=== PATIENT | female | born 1950 | race Caucasian/White ===

== ENCOUNTER 2019-09-24 07:26 | Outpatient (CLI) | payer MEDICARE, BC, SELFPAY ==
--- NOTE | ~2019-09-24 | MM_ITS ---
EXAMINATION: MM screening [facility] BI w abhi HISTORY: Screening mammogram TECHNIQUE: Craniocaudal and mediolateral oblique 3-D tomosynthesis images were obtained and synthetic 2-D images were generated. CAD analysis was submitted and interpreted. COMPARISON: Comparison to multiple prior studies sequentially, with oldest reviewed study dated 04/07. BREAST PARENCHYMAL COMPOSITION: There are scattered areas of fibroglandular density. FINDINGS: There is no evidence of suspicious mass, calcification, or architectural distortion to sugg est malignancy in either breast. There has been no suspicious interval change. IMPRESSION: 1. No mammographic evidence of malignancy. 2. Recommend routine screening mammography in one year. BI-RADS Category 1: Negative Reviewed, dictated and finalized at location A.
== END 2019-09-24 07:27 | disposition home or self-care (01) ==
LOC: ANHIMG 07:30
PROVIDERS: PCP Family Medicine; Visit Provider Nurse Practitioner Obstetrics & Gynecology
DX: Z12.31 Encounter for screening mammogram for malignant neoplasm of breast (principal)
CPT/HCPCS: 77063; 77067

== ENCOUNTER → 2020-09-01 10:00 | Outpatient (CLI) | payer MEDICARE, BC, SELFPAY ==
--- NOTE | ~2020-09-01 | XR_ITS ---
XR ankle LT min 3V 09/01/2020 10:22 Indication: Left ankle pain. Procedure: 4 views left ankle Comparison: 02/12/2011 Findings: There is anatomic alignment. No fracture, subluxation or dislocation. No significant soft t issue abnormality. Ankle mortise intact. There are degenerative calcaneal enthesophytes. Impression: 1: No significant bone or joint abnormality. Reviewed, dictated and finalized at location B. Impression: 1: No significant bone or joint abnormality.
--- NOTE | ~2020-09-01 | XR_ITS ---
EXAMINATION: XR foot RT min 3V DATE: 09/01/2020 10:22 INDICATION: Right foot pain TECHNIQUE: Dorsoplantar, two oblique and lateral views of the right foot were obtained. COMPARISON: None. FINDINGS: Bone alignment is normal. No fracture. Mild osteoarthritis at the first metatarsophalangeal and a few tarsal metatarsal and interphalangeal joints. No erosions. Soft tissues are unremarkable. No ankle j oint effusion. IMPRESSION: 1. 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 Reviewed, dictated and finalized at location A.
== END ==
PROVIDERS: PCP Physician Assistant; Visit Provider Physician Assistant
DX: M25.473 Effusion, unspecified ankle (principal); M79.673 Pain in unspecified foot; M19.071 Primary osteoarthritis, right ankle and foot
CPT/HCPCS: 73610; 73630

== ENCOUNTER → 2020-10-13 09:12 | Outpatient (CLI) | payer MEDICARE, BC, SELFPAY ==
--- NOTE | ~2020-10-13 | US_ITS ---
EXAMINATION: US pelvic complete DATE: 10/13/2020 09:26 INDICATION: Left adnexal fullness, patient status post hysterectomy and right oophorectomy TECHNIQUE: Multiple transabdominal and endovaginal sonographic images of the pelvis were obtained. COMPARISON: None. FINDINGS: The uterus is surgically absent. The ovaries are not visualized however no adnexal abnormal ity is seen. There is no free fluid in the pelvis. IMPRESSION: 1. No sonographic correlate for the patient's symptoms. Reviewed, dictated and finalized at location B.
== END ==
PROVIDERS: PCP Family Medicine; Visit Provider Family Medicine
DX: N94.9 Unspecified condition associated with female genital organs and menstrual cycle (principal)
CPT/HCPCS: 76856

== ENCOUNTER 2020-12-29 14:10 | Outpatient (CLI) | payer MEDICARE, BC, SELFPAY ==
--- NOTE | ~2020-12-29 | DEXA_ITS ---
Bone Density Report Name: Yohana Sánchez Age: 70 Sex: Female Ethnicity: White Date of : 1950 Indication: postmenopausal; hysterectomy; Referring Provider: JOSE ARMANDO CASTANO Study: Bone densitometry was performed. Exam Date: December 29, 2020 Accession number: [id number] Bone Density: Region BMD T-score Z-score Classification AP Spine (L1-L4) 1.108 0.6 2.5 Normal Femoral Neck (Left) 0.808 -0.4 1.3 Normal Total Hip (Left) 0.942 0.0 1.4 Normal Total Hip Bilateral Avg 0.928 -0.1 1.3 Normal Femoral Neck (Right) 0.715 -1.2 0.5 Osteopenia Total Hip (Right) 0.913 -0.2 1.1 Normal World Health Organization criteria for BMD impression classify patients as: Normal (T-score at or above -1.0), Osteopenia (T-score between -1.0 and -2.5), or Osteoporosis (T-score at or below -2.5). 10-year Fracture Risk(1): Major Osteoporotic Fracture 8.6% Hip Fracture 0.8% Reported Risk Factors: [place] (), Neck BMD=0.715, BMI=31.7 (1) FRAX(R) Version 3.08. Fracture probability calculated for an untreated patient. Fracture probability may be lower if the patient has received treatment. Previous Exams: Region Exam Age BMD T-score BMD Change BMD Change Date g/cm2 vs Baseline vs Previous AP Spine(L1-L4) 12/29/2020 70 1.108 0.6 -0.007(-0.7%)# 0.072(6.9%)# 10/09/2018 67 1.036 -0.1 -0.079(-7.1%)# 0.003(0.3%) 04/07/2012 61 1.033 -0.1 -0.082(-7.3%)# -0.079(-7.1%)# 06/24/2008 57 1.112 0.6 -0.002(-0.2%) -0.002(-0.2%) 04/23/2005 54 1.115 0.6 Total Hip(Left) 12/29/2020 70 0.942 0.0 0.039(4.3%)# -0.044(-4.5%)# 10/09/2018 67 0.986 0.4 0.083(9.2%)# 0.079(8.7%)* 04/07/2012 61 0.908 -0.3 0.005(0.5%)# 0.007(0.7%)# 06/24/2008 57 0.901 -0.3 -0.002(-0.2%) -0.002(-0.2%) 04/23/2005 54 0.903 -0.3 Total Hip(Right) 12/29/2020 70 0.913 -0.2 0.039(4.4%)# -0.058(-6.0%)# 10/09/2018 67 0.971 0.2 0.097(11.1%)# 0.034(3.7%)* 04/07/2012 61 0.936 0.0 0.062(7.1%)# 0.059(6.8%)# 06/24/2008 57 0.877 -0.5 0.003(0.4%) 0.003(0.4%) 04/23/2005 54 0.874 -0.6 *Denotes significance at 95% confidence level, LSC for AP Spine = 0.022 g/cm2, LSC for Total Hip = 0.027 g/cm2 Clinical Information Provided by Patient: Has used the following medications: HRT (i.e. estrogen/hormone therapy), Vitamin D, Calcium Has the following medical conditions: Hysterectomy Patient maximum height was 64 Menopause Age: 38 No regular weight beari
--- NOTE | ~2020-12-29 | MM_ITS ---
EXAMINATION: MM screening [facility] BI w abhi HISTORY: Screening mammogram TECHNIQUE: Craniocaudal and mediolateral oblique 3-D tomosynthesis images were obtained and synthetic 2-D images were generated. CAD analysis was submitted and interpreted. COMPARISON: 09/24/2019, 09/18/2018, 09/08/2017 BREAST PARENCHYMAL COMPOSITION: There are scattered areas of fibroglandular density. FINDINGS: There is no evidence of suspicious mass, calcification, or architectural distortion to sugg est malignancy in either breast. There has been no suspicious interval change. IMPRESSION: 1. No mammographic evidence of malignancy. 2. Recommend routine screening mammography in one year. BI-RADS Category 1: Negative Reviewed, dictated and finalized at location A.
== END 2020-12-29 14:11 | disposition home or self-care (01) ==
LOC: ANHIMG 14:11
PROVIDERS: PCP Family Medicine; Visit Provider Family Medicine
DX: Z12.31 Encounter for screening mammogram for malignant neoplasm of breast (principal); Z78.0 Asymptomatic menopausal state; M85.851 Other specified disorders of bone density and structure, right thigh
CPT/HCPCS: 77063; 77067; 77080

== ENCOUNTER 2021-10-23 10:19 | Outpatient (CLI) | payer MEDICARE, BC, SELFPAY ==
--- NOTE | ~2021-10-23 | MR_ITS ---
EXAMINATION: MR lower leg LT wo/w con DATE: 10/23/2021 11:55 INDICATION: Enlarging leg mass TECHNIQUE: Magnetic resonance imaging (MRI) of the distal left lower leg was performed without and wi th 16 mL Multihance intravenous contrast. A marker was placed over the mass. Sequences included axia l, sagittal and coronal T1-weighted FSE and fluid sensitive FSE STIR, coronal and axial T2-weighted F S FSE, axial T1-weighted FS FSE and post contrast axial, sagittal and coronal T1-weighted FS FSE. COMPARISON: None. FINDINGS: There is focal increased thickness of the subcutaneous fat underlying the marker indicating the mass of concern. No discrete encapsulated lipoma. No other abnormal masses no abnormally enhancing lesions identified. The underlying musculature and visualized portion of the tendons at the distal calf and ankle are normal.. Joint space at the left ankle and visualized hindfoot appear normal. No joint effu sions. IMPRESSION: 1. The enlarging mass of concern appears to correspond to focal subcutaneous lipomatosis at the poste rior medial aspect of the left ankle/distal calf without a discernible capsule to suggest lipoma. Reviewed, dictated and finalized at location A. IMPRESSION: 1. The enlarging mass of concern appears to correspond to focal subcutaneous li pomatosis at the posterior medial aspect of the left ankle/distal calf without a discernible capsule to suggest lipoma.
== END 2021-10-23 10:20 | disposition home or self-care (01) ==
PROVIDERS: PCP Family Medicine; Visit Provider Family Medicine
DX: R22.42 Localized swelling, mass and lump, left lower limb (principal)
CPT/HCPCS: 73720; A9577

== ENCOUNTER 2022-02-20 13:20 | Emergency (ER) | payer MEDICARE, BC, SELFPAY ==
[2022-02-20 15:15] VITALS: BP 145/96; PULSE 99; RESP 20; TEMP 36.9; O2SAT 99
--- NOTE | 2022-02-20 16:57 | ED.URI ---
HPI - URI/Sore Throat General Chief Complaint: Upper Respiratory Infection Stated Complaint: congestion,cough Time Seen by Provider: 02/20/22 16:49 Source: patient Mode of arrival: ambulatory Limitations: no limitations History of Present Illness HPI Narrative: patient presents today with a 2 day history of congestion, cough, chest congestion, and decreased appetite. She also reports a fever intermittently up to 99. Denies shortness of breath. No history of asthma or COPD. She has been taking cold and flu medication without relief. sick with similar symptoms. Related Data Home Medications Medication Instructions Recorded Confirmed calcium carbonate 500 mg calcium 500 mg PO DAILY 05/07/20 10/07/21 (1,250 mg) tablet (Calcium 500) cholecalciferol (vitamin D3) 50 50 mcg PO DAILY 05/07/20 10/07/21 mcg (2,000 unit) capsule lutein 25 mg-zeaxanthin 5 mg cap PO 05/07/20 10/07/21 capsule turmeric root extract 500 mg 500 mg PO DAILY 05/07/20 10/07/21 capsule Allergies Allergy/AdvReac Type Severity Reaction Status Date / Time acetaminophen [From Wygesic] Allergy Mild Hives Verified 10/07/21 09:01 propoxyphene [From Wygesic] Allergy Mild Hives Verified 10/07/21 09:01 Review of Systems Review of Systems: CONSTITUTIONAL: Denies body aches, fever, chills, or sweats. EYES: Denies visual changes, redness, or discharge. ENT: Denies rhinorrhea, sore throat, or otalgia.+ congestion CARDIOVASCULAR: Denies chest pain, palpitations, or edema. RESPIRATORY: Denies dyspnea.+ cough, chest congestion GASTROINTESTINAL: Denies abdominal pain, nausea, vomiting, or diarrhea.+ decreased appetite GENITOURINARY: Denies dysuria or hematuria. SKIN: Denies rash, itching, or wounds. MUSCULOSKELETAL: Denies back pain, joint pain, or myalgia. NEUROLOGIC: Denies headache, numbness, tingling, or weakness. PSYCH: Denies depression or anxiety. [facility] Past Medical History Medical History Chronic joint pain shoulder Hypothyroidism Normal colonoscopy (~2018) Surgical History Surgical History H/O section H/O: hysterectomy History of appendectomy Family History Family History Father Alzheimer disease Social History Social History Smoking status: Never smoker Second hand tobacco smoke exposure: No Alcohol intake: never Substance use: never Substance use type: does not use Gender identity (if verbalized by the patient): Female Comments At time of signature, I have reviewed and agree with nursing past medical, surgical, social and family history unless otherwise noted. Please see nursing chart for further information. There is no relevant family history pertinent to the presenting complaint Exam Narrative: GENERAL: mildly ill-appearing, well-nourished, and in no acute distress. HEAD: Normocephalic, atraumatic. EYES: EOMI. No redness or drainage. Conjunctivae normal. ENT: Mucous membranes pink and moist. Nares clear. No rhinorrhea. TMs normal bilaterally. Throat normal. Uvula midline. NECK: Normal AROM. Supple. No lymphadenopathy. CHEST: No respiratory distress. Clear to auscultation. frequent harsh cough HEART: Regular rate and rhythm. No murmur appreciated. Normal peripheral pulses. EXTREMITIES: Normal range of motion. No edema. SKIN: Warm, dry, no rash. Capillary refill normal. Normal skin turgor. NEURO: No focal deficits. Alert and oriented x3. Gait steady. PSYCH: Normal affect. No signs of depression or anxiety. Course Course Level of Care: Express Care Visit Vital Signs Vital signs: Vital Signs Temperature 98.5 F 02/20/22 15:15 Pulse Rate 99 02/20/22 15:15 Respiratory Rate 20 02/20/22 15:15 Blood Pressure 145/96 H
== END 2022-02-20 17:04 | disposition home or self-care (01) ==
PROVIDERS: Emergency Provider Nurse Practitioner; PCP Family Medicine
DX: J06.9 Acute upper respiratory infection, unspecified (principal); E03.9 Hypothyroidism, unspecified
CPT/HCPCS: 99213; G0463

== ENCOUNTER 2022-05-06 07:29 | Outpatient (CLI) | payer MEDICARE, BC, SELFPAY ==
--- NOTE | ~2022-05-06 | MM_ITS ---
EXAMINATION: MM screening [facility] BI w abhi HISTORY: Screening mammogram TECHNIQUE: Craniocaudal and mediolateral oblique 3-D tomosynthesis images were obtained and synthetic 2-D images were generated. CAD analysis was submitted and interpreted. COMPARISON: 12/2020, 09/24/2019, 09/14/2018 bilateral screening mammogram examinations BREAST PARENCHYMAL COMPOSITION: The breasts are almost entirely fatty. FINDINGS: There is no evidence of suspicious mass, calcification, or architectural distortion to sugg est malignancy in either breast. There has been no suspicious interval change. IMPRESSION: 1. No mammographic evidence of malignancy. 2. Recommend routine screening mammography in one year. BI-RADS Category 1: Negative Reviewed, dictated and finalized at location A. [facility] [employer]
== END 2022-05-06 07:30 | disposition home or self-care (01) ==
LOC: ANHIMG 07:31
PROVIDERS: PCP Family Medicine; Visit Provider Family Medicine
DX: Z12.31 Encounter for screening mammogram for malignant neoplasm of breast (principal)
CPT/HCPCS: 77063; 77067

== ENCOUNTER 2023-02-08 12:41 | Emergency (ER) | payer MEDICARE, BC, SELFPAY ==
[2023-02-08 12:51] VITALS: BP 142/86; PULSE 92; RESP 18; TEMP 36.6; O2SAT 98
--- NOTE | 2023-02-08 12:53 | ED.URI ---
HPI - URI/Sore Throat General Chief Complaint: Upper Respiratory Infection Stated Complaint: Fatigue,Cough,Congestion Time Seen by Provider: 02/08/23 12:59 Source: patient and RN notes reviewed Mode of arrival: ambulatory Limitations: no limitations History of Present Illness HPI Narrative: 72-year-old female presented for complaint of headache, body aches, sinus pressure/congestion, cough, fever/chills. Onset yesterday. Endorses 1 episode of vomiting today. Temp up to 102 at home. Denies sob, wheezing, or lethargy. Denies sick contacts. She took NyQuil for symptoms. MD elicited complaint: cough Related Data Home Medications Medication Instructions Recorded Confirmed calcium carbonate 500 mg calcium 500 mg PO DAILY 05/07/20 10/07/21 (1,250 mg) tablet (Calcium 500) cholecalciferol (vitamin D3) 50 50 mcg PO DAILY 05/07/20 10/07/21 mcg (2,000 unit) capsule lutein 25 mg-zeaxanthin 5 mg cap PO 05/07/20 10/07/21 capsule turmeric root extract 500 mg 500 mg PO DAILY 05/07/20 10/07/21 capsule ascorbic acid (vitamin C) 500 mg 250 mg PO DAILY 10/12/22 tablet coenzyme Q10 200 mg/gram oral mg PO DAILY 10/12/22 powder (H2Q CoQ10) omega-3 250 mx-zyb-axq-lutein 2.5 cap PO 10/12/22 mg-zeaxanthin 0.5 mg capsule Allergies Allergy/AdvReac Type Severity Reaction Status Date / Time acetaminophen [From Wygesic] Allergy Mild Hives Verified 10/12/22 09:08 propoxyphene [From Wygesic] Allergy Mild Hives Verified 10/12/22 09:08 Review of Systems Review of Systems: CONSTITUTIONAL: Endorses malaise, chills, sweats, fever EYES: Denies visual changes, redness, or discharge ENT: Reports rhinorrhea, congestion, sinus pain, denies otalgia, sore throat CARDIOVASCULAR: Denies chest pain, palpitations, edema RESPIRATORY: Reports cough, post nasal drainage. Denies dyspnea GASTROINTESTINAL: Reports nausea, vomiting Denies abdominal pain, diarrhea SKIN: Denies rash or itching MUSCULOSKELETAL: Endorses myalgia NEUROLOGIC: Endorses headache PMFSH Past Medical History Medical History Chronic joint pain shoulder Hyperlipidemia Hypothyroidism Normal colonoscopy (~2018) Vitamin D deficiency Surgical History Surgical History H/O section H/O: hysterectomy History of appendectomy Family History Family History Father Alzheimer disease Social History Social History Smoking status: Never smoker Second hand tobacco smoke exposure: No Alcohol intake: never Substance use: never Substance use type: does not use Lack of Transportation: No Lack of Food: Never True Current Housing: I Have Housing Concerned About Future Housing: No Difficulty Paying Gas/Electric Bills: No Difficulty Paying for Meds: No Currently Unemployed: No Education: High School Diploma/GED Difficulty w/ Childcare or Family Care: No Living arrangements: with family Occupation/Education: retired Gender identity (if verbalized by the patient): Female Sexual Orientation (if Verbalized by the Patient): Straight or Heterosexual Spiritual care concerns: No Agree to blood products: Yes Exam Narrative: GENERAL: mildly Ill-appearing, nontoxic no acute distress. HEAD: Normocephalic EYES: PERRLA, conjunctivae clear ENT: Mucous membranes moist. TMs pearly sherman with dull light reflex bilaterally; no tragal tenderness. Oropharynx mildly erythematous without lesions or exudate, no drooling, no hoarseness, no trismus, uvula midline. No tripod positioning, muffled voice, soft palate or pharyngeal wall bulging NECK: Supple. No lymphadenopathy CHEST: Clear to auscultation, breath sounds equal. No wheezing, rhonchi, rales, or stridor. No respiratory distress, speaks in full sentences. HEART: Regular r
== END 2023-02-08 13:10 | disposition home or self-care (01) ==
PROVIDERS: Emergency Provider Nurse Practitioner Family; PCP Family Medicine
DX: U07.1 COVID-19 (principal); E78.5 Hyperlipidemia, unspecified; E03.9 Hypothyroidism, unspecified; E55.9 Vitamin D deficiency, unspecified
CPT/HCPCS: 87426; 87804; 99213; C9803; G0463

== ENCOUNTER 2023-05-12 14:27 | Outpatient (CLI) | payer MEDICARE, BC, SELFPAY ==
[2023-05-12 14:57] LABS: Basophils Absolute Auto 0.1 K/mm3 (0.0-0.1); Basophils Percent Auto 1.2 % (0.2-1.2); Eosinophils Percent Auto 0.4 % (0-4.4); Hematocrit 40.1 % (37.0-47.0); Immature Granulocyte Absolute 0.06 K/mm3 (0.00-0.031); Immature Granulocyte Percent A 1.2 % (0-0.5); Immature Platelet Fraction Pct 16.7 % (0.9-11.2); Lymphocytes Absolute Auto 0.96 K/mm3 (0.9-3.2); Lymphocytes Percent Auto 19.2 % (18.3-44.2); Mean Corpuscular HGB Conc 32.4 g/dl (32-36); Mean Corpuscular Hemoglobin 31.3 pg (26-34); Mean Corpuscular Volume 96.4 fl (80-100); Monocytes Absolute Auto 0.9 K/mm3 (0.1-0.6); Monocytes Percent Auto 17.4 % (2.6-8.5); Neutrophils Percent Auto 60.6 % (45.5-73.1); Platelet Count Result 88 k/mm3 (150-375); Red Blood Count 4.16 M/mm3 (4.2-5.4); Red Cell Distribution Width 14.3 % (11.5-14.5)
[2023-05-12 17:15] LABS: Alanine Aminotransferase 18 U/L (6-35); Albumin Level 4.3 g/dL (3.5-5.1); Alkaline Phosphatase 79 U/L (38-126); Anion Gap 6 mmol/L (8-16); Aspartate Amino Transferase 27 U/L (14-36); Bilirubin,Total 0.4 mg/dL (0.2-1.3); Blood Urea Nitrogen 21 mg/dL (7-17); Calcium 9.3 mg/dL (8.4-10.2); Carbon Dioxide 30 mmol/L (22-30); Chloride 109 mmol/L (98-107); Estimated Glomerular Filt Rate 55; Glucose 103 mg/dL (65-110); Potassium 3.7 mmol/L (3.4-5.0); Sodium 145 mmol/L (137-145)
[2023-05-12 18:29] LABS: Folic Acid 8.7 ng/mL (2.76->20)
[2023-05-12 20:00] LABS: Iron 100 ug/dL (37-170); Percent Iron Saturation 28 % (20-50)
[2023-05-15 02:51] LABS: Methylmalonic Acid 282 nmol/L (87-318)
[2023-05-17 11:21] LABS: Soluble Transferrin Receptor 2.12 mg/L (0.76-1.76)
[2023-05-18 18:58] LABS: Platelet Antibody, Direct NEGATIVE (NEGATIVE)
== END 2023-05-12 14:28 | disposition home or self-care (01) ==
LOC: ANHLAB 14:30
PROVIDERS: Nurse Practitioner Family; PCP Family Medicine; Visit Provider Internal Medicine Hematology & Oncology
DX: D72.819 Decreased white blood cell count, unspecified (principal); D50.8 Other iron deficiency anemias
CPT/HCPCS: 36415; 80053; 82607; 82728; 82746; 83540; 83550; 83921; 84238; 85025; 85055; 86023

== ENCOUNTER 2023-05-26 09:41 | Outpatient (CLI) | payer MEDICARE, BC, SELFPAY ==
--- NOTE | ~2023-05-26 | US_ITS ---
Abdominal Sonogram: Real-time sonographic imaging of the abdomen was performed. Clinical History: Leukopenia Findings: The liver appears mildly echogenic, with no evidence of mass lesion or bile duct dilatatio n. Main portal vein demonstrates normal direction of flow. The spleen is normal in size without evide nce of focal lesion. The gallbladder is well distended, and appears normal with no evidence of galls tone or wall thickening. The common bile duct measures 4 mm. The visualized pancreas, aorta, and IVC are unremarkable. The right kidney measures 10.7 cm in length and the left kidney measures 11.0 cm. There is no hydronephrosis or renal calculus. Impression: Mild diffuse fatty infiltration of liver. Reviewed, dictated and finalized at location . FILLER Impression: Mild diffuse fatty infiltration of liver.
== END 2023-05-26 09:42 | disposition home or self-care (01) ==
PROVIDERS: PCP Family Medicine; Visit Provider Nurse Practitioner Family
DX: K76.0 Fatty (change of) liver, not elsewhere classified (principal); D72.819 Decreased white blood cell count, unspecified
CPT/HCPCS: 76700

== ENCOUNTER 2023-06-08 12:52 | Outpatient (CLI) | payer MEDICARE, BC, SELFPAY ==
--- NOTE | ~2023-06-08 | DEXA_ITS ---
Bone Density Report Name: LEIA BUCIO Age: 72 Sex: Female Ethnicity: White Date of : 1950 Indication: postmenopausal; screening for osteoporosis; hysterectomy; Referring Provider: JANIS BURRELL Study: Bone densitometry was performed. Exam Date: June 08, 2023 Accession number: [id number] Bone Density: Region BMD T-score Z-score Classification AP Spine(L1-L4) 1.089 0.4 2.5 Normal Femoral Neck (Left) 0.760 -0.8 1.0 Normal Total Hip (Left) 0.933 -0.1 1.5 Normal Femoral Neck (Right) 0.794 -0.5 1.3 Normal Total Hip (Right) 0.954 0.1 1.6 Normal Total Hip Mean 0.944 0.0 1.6 Normal World Health Organization criteria for BMD impression classify patients as: Normal (T-score at or above -1.0), Osteopenia (T-score between -1.0 and -2.5), or Osteoporosis (T-score at or below -2.5). 10-year Fracture Risk: FRAX not reported because: All T-scores for Spine Total, Hip Total, Femoral Neck at or above -1.0 Previous Exams: Region Exam Age BMD T-score BMD Change BMD Change Date g/cm2 vs Baseline vs Previous AP Spine (L1-L4) 06/08/2023 72 1.089 0.4 0.053 (5.1%)# -0.019 (-1.7%) 12/29/2020 70 1.108 0.6 0.072 (6.9%)# 0.072 (6.9%)# 10/09/2018 67 1.036 -0.1 Total Hip(Left) 06/08/2023 72 0.933 -0.1 -0.053 (-5.4%) -0.009 (-1.0%) 12/29/2020 70 0.942 0.0 -0.044 (-4.5%) -0.044 (-4.5%) 10/09/2018 67 0.986 0.4 Total Hip(Right) 06/08/2023 72 0.954 0.1 -0.016 (-1.7%) 0.042 (4.6%)* 12/29/2020 70 0.913 -0.2 -0.058 (-6.0%) -0.058 (-6.0%) 10/09/2018 67 0.971 0.2 *Denotes significance at 95% confidence level, LSC for AP Spine = 0.022 g/cm2, LSC for Total Hip = 0.027 g/cm2 # Denotes dissimilar scan types or analysis methods Clinical Information Provided by Patient: Has used the following medications: Vitamin D, Calcium, SYNTHROID Has the following medical conditions: Hysterectomy Patient maximum height was 64 Menopause Age: 38 Drinks caffeinated beverages Onset of menses at age 17 Number of children 3 Impression: The patient has normal bone mass. No significant bone loss was observed. Discussion: BONE DENSITY IS ABOVE THE MINIMUM DESIRABLE LEVEL AT ALL SKELETAL SITES TESTED. This patient?s bone mineral density is above the minimum desirable level (T-score -1.0 or better) at all sites measured. The patient should follow a healthful lifestyle (good nutrition with adequate calcium and vitami
== END 2023-06-08 12:53 | disposition home or self-care (01) ==
PROVIDERS: PCP Family Medicine; Visit Provider Nurse Practitioner Family
DX: M85.80 Other specified disorders of bone density and structure, unspecified site (principal); Z78.0 Asymptomatic menopausal state; Z13.820 Encounter for screening for osteoporosis
CPT/HCPCS: 77080

== ENCOUNTER 2023-07-03 10:45 | Emergency (ER) | payer MEDICARE, BC, SELFPAY ==
--- NOTE | ~2023-07-03 | XR_ITS ---
XR chest 2V DATE: 07/03/2023 13:14 INDICATION: Cough, shortness of breath TECHNIQUE: 2 views COMPARISON: No prior radiograph available from PACS system at this time FINDINGS: Normal heart size. No hilar or mediastinal enlargement. No pulmonary infiltrate or consolid ation, pleural effusion or pulmonary vascular congestion or pneumothorax. Old pulmonary granulomatous disease. Degenerative spurring of the thoracic spine. IMPRESSION: No active cardiopulmonary disease Reviewed, dictated and finalized at location A.
== END 2023-07-03 11:40 | disposition home or self-care (01) ==
LOC: EXPTROY 12:18
PROVIDERS: Emergency Provider Nurse Practitioner Family; PCP Family Medicine
DX: J40 Bronchitis, not specified as acute or chronic (principal); E78.5 Hyperlipidemia, unspecified
CPT/HCPCS: 71046; 99213; G0463

== ENCOUNTER 2023-09-12 08:13 | Outpatient (CLI) | payer MEDICARE, BC, SELFPAY ==
--- NOTE | ~2023-09-12 | MM_ITS ---
EXAMINATION: MM screening [facility] BI w abhi HISTORY: Screening TECHNIQUE: Craniocaudal and mediolateral oblique 3-D tomosynthesis images were obtained and synthetic 2-D images were generated. CAD analysis was submitted and interpreted. COMPARISON: Comparison to multiple prior studies sequentially, with oldest reviewed study dated 10/2016. BREAST PARENCHYMAL COMPOSITION: Not Dense: Breast are almost entirely fatty. FINDINGS: There is no evidence of suspicious mass, calcification, or architectural distortion to sugg est malignancy in either breast. There has been no suspicious interval change. IMPRESSION: 1. No mammographic evidence of malignancy. 2. Recommend routine screening mammography in one year. BI-RADS Category 1: Negative Reviewed, dictated and finalized at location B.
== END 2023-09-12 08:14 | disposition home or self-care (01) ==
LOC: ANHIMG 08:15
PROVIDERS: PCP Family Medicine; Visit Provider Family Medicine
DX: Z12.31 Encounter for screening mammogram for malignant neoplasm of breast (principal)
CPT/HCPCS: 77063; 77067

== ENCOUNTER 2023-09-20 08:15 | Outpatient (CLI) | payer MEDICARE, BC, SELFPAY ==
[2023-09-20 09:01] LABS: Basophils Absolute Auto 0.1 K/mm3 (0.0-0.1); Basophils Percent Auto 1.4 % (0.2-1.2); Eosinophils Percent Auto 0.5 % (0-4.4); Hemoglobin 14.3 g/dL (12.0-15.0); Immature Granulocyte Absolute 0.03 K/mm3 (0.00-0.031); Immature Granulocyte Percent A 0.7 % (0-0.5); Immature Platelet Fraction Pct 17.6 % (0.9-11.2); Lymphocytes Absolute Auto 0.79 K/mm3 (0.9-3.2); Lymphocytes Percent Auto 18.2 % (18.3-44.2); Mean Corpuscular HGB Conc 32.5 g/dl (32-36); Mean Corpuscular Hemoglobin 31.4 pg (26-34); Mean Corpuscular Volume 96.7 fl (80-100); Mean Platelet Volume 11.7 fl (7.4-10.4); Monocytes Absolute Auto 0.6 K/mm3 (0.1-0.6); Monocytes Percent Auto 14.5 % (2.6-8.5); Neutrophils Absolute Auto 2.8 K/mm3 (1.3-6.7); Neutrophils Percent Auto 64.7 % (45.5-73.1); Platelet Count Result 84 k/mm3 (150-375); Red Blood Count 4.55 M/mm3 (4.2-5.4); Red Cell Distribution Width 14.9 % (11.5-14.5); White Blood Count 4.3 K/mm3 (4.5-10.0)
[2023-09-20 10:00] LABS: HIV 1/2 Ab P24 Ag Result Negative (Negative)
[2023-09-20 11:53] LABS: Iron 149 ug/dL (37-170)
[2023-09-20 12:03] LABS: Percent Iron Saturation 48 % (20-50)
[2023-09-20 12:57] LABS: Hepatitis B Surface Antigen Negative (Negative)
[2023-09-20 13:02] LABS: HAV RESULT Negative (Negative); Hepatitis B Core IgM Result Negative (Negative)
[2023-09-20 13:14] LABS: Hepatitis C Virus Antibody Negative (Negative)
[2023-09-24 14:38] LABS: Soluble Transferrin Receptor 2.17 mg/L (0.76-1.76)
== END 2023-09-20 08:16 | disposition home or self-care (01) ==
LOC: ANHLAB 08:23
PROVIDERS: Nurse Practitioner Family; PCP Family Medicine; Visit Provider Internal Medicine Hematology & Oncology
DX: D50.8 Other iron deficiency anemias (principal); D69.6 Thrombocytopenia, unspecified; Z11.4 Encounter for screening for human immunodeficiency virus [HIV]
CPT/HCPCS: 36415; 80074; 83540; 83550; 84238; 85025; 85055; 86703; G0432

== ENCOUNTER 2023-10-12 09:02 | Outpatient (CLI) | payer MEDICARE, BC, SELFPAY ==
--- NOTE | ~2023-10-12 | XR_ITS ---
Right Knee Technique: AP, lateral, and sunrise views were obtained. Clinical History: Pain Findings: No acute fracture or dislocation is seen. Possible chronic healed fracture of the proximal fibular shaft. Osseous alignment is anatomic. Minimal degenerative spurring at the intercondylar notc h and patella noted. Soft tissues are unremarkable. No joint effusion is seen. Impression: Minimal degenerative spurring, as above. Possible chronic healed fracture deformity at the proximal fibular shaft. Reviewed, dictated and finalized at location M. Impression: Minimal degenerative spurring, as above. Possible chronic healed fracture deformity at the proximal fibular shaft.
== END 2023-10-12 09:03 ==
LOC: MICIMG 09:04
PROVIDERS: PCP Family Medicine; Visit Provider Family Medicine
DX: M25.761 Osteophyte, right knee (principal)
CPT/HCPCS: 73564

== ENCOUNTER 2023-11-18 07:04 | Outpatient (CLI) | payer MEDICARE, BC, SELFPAY ==
--- NOTE | ~2023-11-18 | MR_ITS ---
EXAMINATION: MR knee RT wo con DATE: 11/18/2023 07:37 INDICATION: Right knee pain TECHNIQUE: Magnetic resonance imaging (MRI) of the right knee was performed without intravenous contr ast. Sequences included coronal PD-weighted FSE, coronal PD-weighted FS FSE, sagittal T2-weighted FS E, sagittal PD-weighted FS FSE and axial PD weighted fat saturated FSE. COMPARISON: Right knee radiographs dated 10/12/2023 FINDINGS: Medial compartment: Medial meniscus is normal. Articular cartilage is normal. Lateral compartment: Complex tear of the body and anterior horn of the lateral meniscus with meniscal defect measuring 6 m m AP is absence of the inner two thirds of the meniscal body. Partial thickness cartilage loss involv ing. 50% coverage thickness with mild surface regularity at the central to posterior weightbearing la teral femoral condyle and along significant portion of the lateral tibial plateau. Patellofemoral compartment: Mild partial thickness cartilage loss and scattered shallow chondral fissuring along the medial and l ateral patellar facets and intervening apical ridge. Deeper chondral ulceration with negligible corti sally irregularity and subarticular edema like signal change at the medial and lateral trochlea. Ligaments and tendons: Anterior and posterior cruciate ligaments are normal. The medial collateral ligament and fibular campos ateral ligament complex are normal. The extensor mechanism is normal. The visualized medial and later al hamstring tendons as well as the iliotibial band are normal. Fluid: Small knee joint effusion at the suprapatellar pouch. No loose osteochondral bodies identified. Small Echols's cyst. Osseous/other: Mild cystic change at the posterior aspect of the intercondylar eminence underlying the tibial footpl ates of the posterior cruciate ligament and posterior horn of the medial meniscus with mild surroundi ng marrow edema. Marrow signal is otherwise normal. No fracture or pathologic marrow replacing proces s. IMPRESSION: 1. Complex lateral meniscal tear. 2. Mild to moderate lateral compartment and mild total femoral compartment osteoarthritis with region s of moderate to high-grade chondromalacia. 3. Small right knee joint effusion with small Echols's cyst. Reviewed, dictated and finalized at location A. IMPRESSION: 1. Complex lateral meniscal tear. 2. Mild to moderate lateral compartment and mild total femoral compartment oste oarthritis with regions of moderate to high-grade chondromalacia. 3. Small right knee joint effusion with small Echols's cyst.
== END 2023-11-18 07:05 ==
LOC: MICIMG 07:06
PROVIDERS: PCP Family Medicine; Visit Provider Family Medicine
DX: S83.271D Complex tear of lateral meniscus, current injury, right knee, subsequent encounter (principal); X58.XXXD Exposure to other specified factors, subsequent encounter; M25.461 Effusion, right knee; M71.21 Synovial cyst of popliteal space [Baker], right knee
CPT/HCPCS: 73721

== ENCOUNTER 2023-12-27 07:10 | Outpatient (CLI) | payer MEDICARE, BC, SELFPAY ==
--- NOTE | 2023-12-27 07:56 | ECG_ITS ---
Test Date: 2023-12-27 08:03:22 Measurements Intervals [place] Rate: 69 P: 28 VA: 173 QRS: 39 QRSD: 82 T: 42 QT: 408 QTc: 437 Interpretive Statements SINUS RHYTHM LOW QRS VOLTAGE IN PRECORDIAL LEADS [QRS DEFLECTION < 1.0 mV IN CHEST LEADS] No previous ECG available for comparison Electronically Signed On 12-27-2023 10:11:54 CDT by Lance Najera M.D.
[2023-12-27 08:09] LABS: Basophils Absolute Auto 0.1 K/mm3 (0.0-0.1); Basophils Percent Auto 1.8 % (0.2-1.2); Eosinophils Percent Auto 0.7 % (0-4.4); Hematocrit 41.4 % (37.0-47.0); Hemoglobin 13.8 g/dL (12.0-15.0); Immature Granulocyte Absolute 0.03 K/mm3 (0.00-0.031); Immature Granulocyte Percent A 0.7 % (0-0.5); Immature Platelet Fraction Pct 18.6 % (0.9-11.2); Lymphocytes Absolute Auto 0.74 K/mm3 (0.9-3.2); Lymphocytes Percent Auto 16.9 % (18.3-44.2); Mean Corpuscular HGB Conc 33.3 g/dl (32-36); Mean Corpuscular Hemoglobin 32.5 pg (26-34); Mean Corpuscular Volume 97.6 fl (80-100); Mean Platelet Volume 12.8 fl (7.4-10.4); Monocytes Absolute Auto 0.8 K/mm3 (0.1-0.6); Monocytes Percent Auto 18.9 % (2.6-8.5); Neutrophils Absolute Auto 2.7 K/mm3 (1.3-6.7); Platelet Count Result 82 k/mm3 (150-375); Red Blood Count 4.24 M/mm3 (4.2-5.4); Red Cell Distribution Width 14.5 % (11.5-14.5); White Blood Count 4.4 K/mm3 (4.5-10.0)
[2023-12-27 08:18] LABS: Alanine Aminotransferase 20 U/L (6-35); Albumin Level 4.5 g/dL (3.5-5.1); Alkaline Phosphatase 85 U/L (38-126); Anion Gap 8 mmol/L (4-12); Aspartate Amino Transferase 28 U/L (14-36); Bilirubin,Total 0.5 mg/dL (0.2-1.3); Blood Urea Nitrogen 19 mg/dL (7-17); Calcium 9.2 mg/dL (8.4-10.2); Carbon Dioxide 27 mmol/L (22-30); Chloride 106 mmol/L (98-107); Estimated Glomerular Filt Rate > 60; Glucose 113 mg/dL (65-110); Potassium 4.2 mmol/L (3.4-5.0); Sodium 141 mmol/L (137-145)
[2023-12-27 08:19] LABS: Iron 80 ug/dL (37-170)
[2023-12-27 08:29] LABS: Percent Iron Saturation 28 % (20-50)
[2023-12-27 09:15] LABS: Folic Acid 8.1 ng/mL (2.76->20)
== END 2023-12-27 07:11 | disposition home or self-care (01) ==
PROVIDERS: Nurse Practitioner Family; PCP Family Medicine; Referring Provider Internal Medicine Hematology & Oncology; Visit Provider Orthopaedic Surgery
DX: Z01.818 Encounter for other preprocedural examination (principal); D69.6 Thrombocytopenia, unspecified; D50.9 Iron deficiency anemia, unspecified; D72.819 Decreased white blood cell count, unspecified
CPT/HCPCS: 36415; 80053; 82607; 82728; 82746; 83540; 83550; 85025; 85055; 86038; 86039; 93005

== ENCOUNTER 2024-01-02 08:04 | Outpatient (CLI) | payer MEDICARE, BC, SELFPAY ==
[2024-01-02 08:40] LABS: Prothrombin Time 13.8 Seconds (11.1-14.7)
[2024-01-02 08:41] LABS: Partial Thromboplastin Time 28.4 Seconds (22.3-36.8)
== END 2024-01-02 08:05 | disposition home or self-care (01) ==
LOC: ANHSURGERY 08:08
PROVIDERS: Anesthesiology; PCP Family Medicine; Visit Provider Orthopaedic Surgery
DX: D69.6 Thrombocytopenia, unspecified (principal); Z01.818 Encounter for other preprocedural examination
CPT/HCPCS: 36415; 85610; 85730

== ENCOUNTER 2024-01-04 01:50 | Day surgery (SDC) | payer MEDICARE, BC, SELFPAY ==
--- NOTE | 2023-12-29 14:37 | PC.NURSE ---
Report to the Outpatient Waiting Room, entrance under the green pavilion located off [facility], at time __11:30am___ on date 01/04/24 . Planned Procedure Time: __1:30pm .? Time changes happen often and if your time is changed the preop area will call you the afternoon before. - You and your visitor will be asked to self-screen and do not enter if you have any COVID symptoms. Please call surgeon if you need to reschedule. - A mask is optional within the hospital at this time. Patients may have clear liquids (water, carbonated beverages, clear teas, apple juice) until 3 hours prior to surgery with a maximum of 20 ounces. - No food from midnight until time of surgery and no smoking (10:30am) Take only the following medications with a SIP of water on the morning of surgery: ____Levothyroxine and Celebrex DO NOT STOP ANY OF YOUR OTHER PRESCRIPTION MEDICATIONS PRIOR TO SURGERY EXCEPT THE FOLLOWING Medications to discontinue per physician Hold all vitamins, supplements, herbs and probiotics 3 days prior per Anesthesia Date to take last dose____12/31/23 Please no make-up, nail monegasque, hairspray, perfume, deodorant, or body powder the day of surgery.? No jewelry (including any body piercings) or valuables the day of surgery, leave them at home.? Please take a shower or bath the night before, or the morning of, surgery with an antibacterial soap.? Wear comfortable, loose fitting clothing.? - Jewelry must be removed prior to entering the operating room.? Rings and piercings that are not removed may be cut off. - The hospital will not accept responsibility for valuables.? - Please leave all valuables, including medications, at home the day of surgery. If you are going home after surgery, a licensed train driver must drive you home.? - NO public transportation without another adult if you receive anesthesia. - We recommend that an adult stay with you for 24 hours following discharge. - We also recommend that you do not drive, make important decision, drink alcoholic beverages, or take any drugs that were not prescribed by your health care provider for at least 24 hours after your discharge time. Follow any additional instructions given to you from your surgeon. Telephone instructions given to ___patient and asked if any additional questions and then verbalized understanding. Patient advised to call surgeon office or pre surgery nurse liaison [phone] if any additional questions.
[2023-12-29 14:42] VITALS: BMI 31.6
--- NOTE | 2024-01-03 17:46 | WPDANESEPPF ---
Anes - Initial Pre Proc Eval Procedure: Operation Date: 01/04/24 13:30 Proposed Procedures p Right Knee Arthroscopy - Luis Reed MD Date/Time: 01/03/24 17:46 Surgeon: Luis Reed MD Pre Op Diagnosis: right knee lateral meniscus tear Patient Data Age: 73 Gender: F Height: 1.6 m Weight: 81 kg Allergies Allergy/AdvReac Type Severity Reaction Status Date / Time propoxyphene [From [employer]] Allergy Mild Hives Verified 01/04/24 11:51 Home Medications Medication Instructions Recorded Confirmed Type calcium carbonate (Calcium 500) 500 mg PO DAILY 05/07/20 01/04/24 History cholecalciferol (vitamin D3) 50 50 mcg PO DAILY 05/07/20 01/04/24 History mcg (2,000 unit) capsule lutein 25 mg-zeaxanthin 5 mg 1 cap PO DAILY 05/07/20 01/04/24 History capsule turmeric root extract 500 mg 500 mg PO DAILY 05/07/20 01/04/24 History capsule ascorbic acid (vitamin C) 500 mg 250 mg PO DAILY 10/12/22 01/04/24 History tablet coenzyme Q10 200 mg/gram oral 200 mg PO DAILY 10/12/22 01/04/24 History powder (H2Q CoQ10) omega-3 250 yt-lxd-xvm-lutein 2.5 1 cap PO DAILY 10/12/22 01/04/24 History mg-zeaxanthin 0.5 mg capsule levothyroxine 25 mcg tablet 25 mcg PO DAILY #90 tabs 01/30/23 01/04/24 Rx simvastatin 5 mg tablet 5 mg PO DAILY #90 tabs 06/21/23 01/04/24 Rx estradiol 0.5 mg tablet 0.5 mg PO .twice a week #12 tabs 11/07/23 01/04/24 Rx celecoxib 200 mg capsule (Celebrex) 200 mg PO DAILY #30 caps 11/14/23 01/04/24 Rx hydrocodone 5 mg-acetaminophen 325 1 tablet PO Q12H PRN pain #20 tabs 01/04/24 Rx mg tablet Patient hx anesthesia problems: none Family hx anesthesia problems: none Results Review: All pre-operative results and documents have been reviewed as part of the pre-operative evaluation. [facility] Past Medical History Medical History Chronic joint pain shoulder Hyperlipidemia Hypothyroidism Normal colonoscopy (~2018) Vitamin D deficiency Surgical History Surgical History H/O section H/O: hysterectomy History of appendectomy Family History Family History Father Alzheimer disease Social History Social History Smoking status: Never smoker Second hand tobacco smoke exposure: No Alcohol intake: never Substance use: never Substance use type: does not use Lack of Transportation: No Lack of Food: Never True Current Housing: I Have Housing Concerned About Future Housing: No Difficulty Paying Gas/Electric Bills: No Difficulty Paying for Meds: No Currently Unemployed: No Education: High School Diploma/GED Difficulty w/ Childcare or Family Care: No Living arrangements: with family Additional living arrangements comments: Occupation/Education: retired Gender identity (if verbalized by the patient): Female Sexual Orientation (if Verbalized by the Patient): Straight or Heterosexual Spiritual care concerns: No Agree to blood products: Yes Anes - Eval Final PreProcedure Day of Procedure 01/03/24 17:46 Patient weight: overweight Results Review: All pre-operative results and documents have been reviewed as part of the pre-operative evaluation. Informed Consent: The patient's anesthetic plan and its attendant risks and benefits were discussed with the patient/family/POA. Questions were solicited and answers provided to the satisfaction of the patient/family/POA.
[2024-01-04] VITALS (14 sets, daily range): BP systolic 133–165; BP diastolic 64–98; PULSE 56–82; RESP 10–20; TEMP 36.3; O2SAT 94–100
--- NOTE | 2024-01-04 07:22 | WPDHPUPDATE1 ---
History and Physical Update Update Date/Time: 01/04/24 07:22 History and Physical has been reviewed, including an updated exam of the patient. There are NO changes in the patient's condition. Risks, benefits, and alternatives have been discussed and questions answered. Patient agrees to proceed with procedure.
[2024-01-04] MEDS: LACTATED RINGERS 1,000 ML 30 ML IV CONT (12:04)
[2024-01-04] MEDS: ACETAMINOPHEN 500 MG TABLET 1000 MG PO (12:04)
--- NOTE | 2024-01-04 12:45 | P.PNAN_ITS ---
Anes - Eval Final PreProcedure Day of Procedure 01/04/24 12:45 Patient weight: obese Heart: regular rate and rhythm Lungs: clear to auscultation Airway: Mallampati scale class 1 Neurological: alert and oriented Last oral intake: >/= 8 hours ASA classification: III Emergent: no Anesthetic plan: proceed Anesthesia type and monitoring: general LMA and standard monitoring Results Review: All pre-operative results and documents have been reviewed as part of the pre- operative evaluation. Informed Consent: The patient's anesthetic plan and its attendant risks and benefits were discussed with the patient/family/POA. Questions were solicited and answers provided to the satisfaction of the patient/family/POA.
[2024-01-04] MEDS: ceFAZolin 2 GM/D5W 50 ML 2 GM/50 ML BAG IVPB (13:26)
[2024-01-04] MEDS: BUPivacaine HCL 0.5% PF 30 ML VIAL INFILTRATE (13:26)
--- NOTE | 2024-01-04 14:33 | W.PM.PROC2 ---
Procedure Note - Detailed Date of Procedure 01/04/24 Pre-op Diagnosis right knee lateral meniscus tear Post-op Diagnosis Same Procedure Performed RIGHT KNEE SCOPE Surgeon Luis Reed MD Anesthesia General Description of Procedure PATIENT WAS TAKEN TO THE OPERATING ROOM SUITE. ANESTHESIA WAS INDUCED. THE RIGHT LEG WAS PREPPED AND DRAPED STERILE. TROCARS WERE PLACED IN TO THE KNEE JOINT IN THE USUAL FASHION. THE CAMERA WAS INTRODUCED. THERE WAS SEVERE CHONDROMALACIA TO THE PATELLA FEMORAL JOINT. THERE WAS A LOT OF SYNOVITIS IN ALL COMPARTMENTS. THE MEDIAL COMPARTMENT SHOWED MINIMAL CHONDROMALACIA TO THE MEDIAL FEMORAL CONDYLE AND PLATEAU. THERE WAS NO MEDIAL MENISCUS TEAR. THE ACL WAS INTACT. THE LATERAL MENISCUS WAS TORN AT THE MID SUBSTANCE AND EXTENDED TO THE POSTERIOR AND MID ANTERIOR HORNS. THE TEAR WAS A COMPLEX TEAR. THE TEAR WAS RESECTED. THE LATERAL COMPARTMENT HAD MINIMAL CHONDROMALACIA AT THE LATERAL PLATEAU AND LATERAL FEMORAL CONDYLE. A SYNOVECTOMY WAS PREFORMED. THE PATELLO FEMORAL JOINT UNDERWENT CHONDROPLASTY OVER THE PATELLA. THERE WAS GRADE 2 CHONDROMALACIA IN A SMALL SECTION OF THE OF THE PATELLA. THERE WAS GRADE 3 AND 4 CHONDROMALACIA TO THE TROCHLEA. SYNOVECTOMY WAS PREFORMED IN THE SUPERIOR MEDIAL COMPARTMENT. THE WOUNDS WERE APPROXIMATED WITH 4.0 NYLON. STERILE DRESSING WAS APPLIED. PATIENT WAS EXTUBATED. Estimated Blood Loss 5 Complications No immediate complications Condition Stable Disposition PACU
[2024-01-04] MEDS: fentaNYL CITRATE INJ (*CRX) 100 MCG/2 ML VIAL 25 MCG IV PUSH ×3 (15:15→16:20)
[2024-01-04] MEDS: ONDANSETRON INJ 4 MG/2 ML VIAL IV PUSH (15:26)
--- NOTE | 2024-01-04 15:37 | ECG_ITS ---
Test Date: 2024-01-04 15:57:08 Measurements Intervals Orange Rate: 61 P: 20 FL: 180 QRS: 29 QRSD: 89 T: 38 QT: 442 QTc: 446 Interpretive Statements SINUS RHYTHM LOW QRS VOLTAGE IN PRECORDIAL LEADS [QRS DEFLECTION < 1.0 mV IN CHEST LEADS] BORDERLINE ECG Compared to ECG 12/27/2023 08:03:22 No significant changes Electronically Signed On 01-05-2024 07:52:11 CDT by Juanjo Fabian M.D.
[2024-01-04] MEDS: oxyCODONE HCL (*CRX) 5 MG TAB IR PO (16:46)
== END 2024-01-04 17:47 | disposition home or self-care (01) ==
PROVIDERS: PCP Family Medicine; Visit Provider Orthopaedic Surgery
PROC: (CPT 29870; principal; 2024-01-04 13:30)
DX: S83.271A Complex tear of lateral meniscus, current injury, right knee, initial encounter (principal); M94.261 Chondromalacia, right knee; M65.861 Other synovitis and tenosynovitis, right lower leg; E78.5 Hyperlipidemia, unspecified; E03.9 Hypothyroidism, unspecified; E55.9 Vitamin D deficiency, unspecified; G89.29 Other chronic pain; M25.519 Pain in unspecified shoulder; E66.9 Obesity, unspecified; Z68.31 Body mass index [BMI] 31.0-31.9, adult; Z79.891 Long term (current) use of opiate analgesic; Z79.1 Long term (current) use of non-steroidal anti-inflammatories (NSAID); Z98.890 Other specified postprocedural states; X58.XXXA Exposure to other specified factors, initial encounter
CPT/HCPCS: 29881; 29876; 93005; A9270; J0690; J1100; J2003; J2405; J2704; J3010; J7120

== ENCOUNTER 2024-04-26 08:16 | Outpatient (CLI) | payer MEDICARE, BC, SELFPAY ==
--- OUTSIDE RECORDS SUMMARY | 2024-04-26 08:24 | XMS_ITS | Clinical Summary ---
Author Organization [facility] Address [address] [place] [address]. [place] [address] Care Team Providers Care Instructor Adjunct Surgical Technician Name Role Phone Unavailable Primary Care Provider Unavailabl e Social History Tobacco Use Types Packs/Day Years Used Date Smoking Tobacco: Never Assessed Comments Unknown Sex and Gender Information Value Date Recorded Sex Assigned at Not on file Legal Sex Female 5:37 PM CDT Gender Identity Not on file Sexual Orientation Not on file Plan of Treatment Health Maintenance Due Date Last Done Comments Colorectal Cancer Screening Colonoscopy (10 Years) 1952 Hepatitis C 1970 DTaP, Tdap and Td Vaccines ( 1 - Tdap) 12/28/1971 Mammogram Screening 1992 Zoster Vaccines (1 of 2) 2002 Dexa Scan (General) 2017 Pneumococcal Vaccine: 65+ Ye ars (1 of 1 - PCV) 2017 COVID-19 Vaccine ( - 2023-2 5 season) 2023 Influenza Adult (#1) 2023 RSV Immunization or 60+ Years (1 - 1-dose 75+ series) 12/28/2027 Meningococcal B Vaccine Aged Out No l onger eligible based on patient's age to complete this topic Meningococcal Vaccine Aged Out No christina kosta eligible based on patient's age to complete this topic RSV Immunizations Under 20 Months Aged Out No longer eligible based on patient's age to complete this topic
--- OUTSIDE RECORDS SUMMARY | 2024-04-26 08:24 | XMS_ITS | Continuity of Care Document ---
Author Organization [facility] Address [address] [place] [address] Phone Care Team Providers Care Celebrity Manager Name Role Phone Vickie Mancini Unavailable Unavailable Advance Directives Directive Yes / No Effective Date File Name No Information Encounters Encounter Description Practice Location Reason(s) For Visit Diagnoses Date Provider Providers Copied on Encounter [facility], [address], [place], [place], [id number], [place] tel:[phone] [facility] No Information 2 Addis Johnston. [address] , [address], [place], [address], [place]. tel:[phone] Family History Family Member Type Diagnosis Age At Onset No Information Payers Payer name Insurance type Covered libertarian ID Authoriza tikm(s) Mail Handlers Benefit Plan Commercial CI [id number] Social History Type Description Quantity Date Captured Comments Sex Female Smoking Status No Information Chief Complaint And Reason For Visit No Information Reason For Referral Reason For Referral No Information History Of Present Illness Encounter Date Complaint History Of Prese nt Illness No Information Functional Status Date Functional Assessmen t No Information Instructions Date Instruction Additional Infor mation No Information Assessments Type Assessment Date No Information Patient Care Teams Name Effective Dates (start - stop) Status Members No Information
[2024-04-26 09:00] LABS: Basophils Absolute Auto 0.1 K/mm3 (0.0-0.1); Basophils Percent Auto 1.8 % (0.2-1.2); Eosinophils Percent Auto 0.9 % (0-4.4); Hematocrit 42.6 % (37.0-47.0); Hemoglobin 13.9 g/dL (12.0-15.0); Immature Granulocyte Absolute 0.04 K/mm3 (0.00-0.031); Immature Granulocyte Percent A 0.9 % (0-0.5); Immature Platelet Fraction Pct 17.5 % (0.9-11.2); Lymphocytes Absolute Auto 0.76 K/mm3 (0.9-3.2); Lymphocytes Percent Auto 17.3 % (18.3-44.2); Mean Corpuscular HGB Conc 32.6 g/dl (32-36); Mean Corpuscular Hemoglobin 31.4 pg (26-34); Mean Corpuscular Volume 96.4 fl (80-100); Mean Platelet Volume 12.2 fl (7.4-10.4); Monocytes Percent Auto 21.6 % (2.6-8.5); Neutrophils Absolute Auto 2.5 K/mm3 (1.3-6.7); Neutrophils Percent Auto 57.5 % (45.5-73.1); Platelet Count Result 78 k/mm3 (150-375); Red Blood Count 4.42 M/mm3 (4.2-5.4); Red Cell Distribution Width 14.3 % (11.5-14.5); White Blood Count 4.4 K/mm3 (4.5-10.0)
[2024-04-26 12:07] LABS: Anion Gap 9 mmol/L (4-12); Blood Urea Nitrogen 23 mg/dL (7-17); Calcium 9.6 mg/dL (8.4-10.2); Carbon Dioxide 28 mmol/L (22-30); Chloride 106 mmol/L (98-107); Estimated Glomerular Filt Rate 57; Glucose 112 mg/dL (65-110); Potassium 4.5 mmol/L (3.4-5.0); Sodium 143 mmol/L (137-145)
== END 2024-04-26 08:17 | disposition home or self-care (01) ==
LOC: ANHLAB 08:18
PROVIDERS: PCP Family Medicine; Visit Provider Internal Medicine Hematology & Oncology
DX: D69.6 Thrombocytopenia, unspecified (principal)
CPT/HCPCS: 36415; 80048; 85025; 85055

== ENCOUNTER 2024-08-30 08:10 | Outpatient (CLI) | payer MEDICARE, BC, SELFPAY ==
--- OUTSIDE RECORDS SUMMARY | 2024-08-30 08:18 | XMS_ITS | Continuity of Care Document ---
Author Organization [facility] Address [address] [place] [address] Phone Care Team Providers Care Health Care Aide Name Role Phone Vickie Mancini Unavailable Unavailable Advance Directives Directive Yes / No Effective Date File Name No Information Encounters Encounter Description Practice Location Reason(s) For Visit Diagnoses Date Provider Providers Copied on Encounter [facility], [address], [place], [place], [id number], [place] tel:[phone] [facility] No Information 2 Addis Johnston. [address] , [address], [place], [address], [place]. tel:[phone] Family History Family Member Type Diagnosis Age At Onset No Information Payers Payer name Insurance type Covered republican ID Authoriza tikm(s) Mail Handlers Benefit Plan Commercial CI [id number] Social History Type Description Quantity Date Captured [...]
--- OUTSIDE RECORDS SUMMARY | 2024-08-30 08:18 | XMS_ITS | Clinical Summary ---
Author Organization [facility] Address [address] [place] [address] [place] [address] Care Team Providers Care Garment Manufacturer Name Role Phone Harini Damon MD Primary Care Provider [phone] Allergies Active Allergy Reactions Criticality Noted Date Comments Wygesic Rash Low 05/12/2023 Medications levothyroxine 25 mcg tablet Take 25 mcg by mouth daily in the morning. Active simvastatin (ZOCOR) 5 mg tablet Take 5 mg by mouth daily with supper. Active CALCIUM CARBONATE-VITAM IN D3 ORAL Take 125 mg by mouth daily. Active ascorbic acid (VITAMIN C) 250 mg Tablet, Chewable Take 400 mg by mouth daily. Active Fish Oil-[place]-3 Fatty Acids 360-1,200 mg Capsule Take 1 Capsule by mouth. Active estradioL (ESTRACE) 0.5 mg tablet Take 0.5 mg by mouth. Take Tuesday and 09/22/2023 Active vits A,C,E/lutein/ze axanth/min (SAVISION PLUS LUTEIN ZEAXAN ORAL) Take 4 mg by mouth daily. Active multivitamins-m inerals-lutein (CENTRUM SILVER) Tablet Take 20 Tablets by mouth daily. Active ferrous sulfate 325 mg (65 mg iron) tablet Take 325 mg by mouth daily. Active Active Problems Problem Noted Date Diagnosed Date Thrombocytopenia 10/04/2023 Encounters Date Type Department Care Team Description 08/16/2024 External Device Data ST[facility] ABSTRACTION Provider, Abstract 08/15/2024 External Device Data [facility] ABSTRACTION Provider, Abstract 08/14/2024 External Device Data [facility] ABSTRACTION Provider, Abstract 06/13/2024 External Device Data [facility] ABSTRACTION Provider, Abstract 06/02/2024 External Device Data [facility] ABSTRACTION Provider, Abstract 06/01/2024 External Device Data [facility] ABSTRACTION Provider, Abstract 05/30/2024 External Device Data [facility] ABSTRACTION Provider, Abstract from Last 3 Months Family History Medical History Relation Name Comments No Known Problems Brother 4 brothers No Known Problems Child 1 No Known Problems Child 2 No Known Problems Child 3 No Known Problems Father No Known Problems Mother Breast Cancer Sister Relation Name Status Comments Brother 4 brothers Child 1 Alive Child 2 Alive Child 3 Alive Father Mother Alive Sister Alive Social History Tobacco Use Types Packs/Day Years Used Date Smoking Tobacco: Never Smokeless Tobacco: Never Tobacco Cessation:Counseling Given: Not Answered Alcohol Use Standard Drinks/Week Comments Not Currently 0 (1 standard drink = 0.6 oz pur e alcohol) Comments Unknown Sex and Gender Information Value Date Recorded Sex Assigned at Not on file Legal Sex 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 Gender Identity Not on file Sexual Orientation Not on file Last Filed Vital Signs Vital Sign Reading Time Taken Comments Blood Pressure 133/75 05/04/2024 8:39 AM STEEL PAN FORM PLACING SUPERVISOR Pulse 72 05/04/2024 8:39 AM STEEL PAN FORM PLACING SUPERVISOR Temperature 36.1 C (96.9 F) 05/04/2024 8:39 AM STEEL PAN FORM PLACING SUPERVISOR Respiratory Rate 14 05/04/2024 8:39 AM STEEL PAN FORM PLACING SUPERVISOR Oxygen Saturation 98% 05/04/2024 8:39 AM STEEL PAN FORM PLACING SUPERVISOR Inhaled Oxygen Concentration - - Weight 82.1 kg (181 lb) 05/04/2024 8:39 AM STEEL PAN FORM PLACING SUPERVISOR Height 162.6 cm (5' 4) 05/12/2023 1:42 PM STEEL PAN FORM PLACING SUPERVISOR Body Mass Index 31.07 05/12/2023 1:42 PM STEEL PAN FORM PLACING SUPERVISOR Plan of Treatment Upcoming Encounters Date Type Department Care Team (Late st Contact Info) Description 09/14/2024 9:00 AM CDT Office Visit [facility] Oncology and Hematology - [place] [address] [facility] [address] [place] [address] Antwon Alford MD [address] [facility] [address] [place] [address] Health Maintenance Due Date Last Done Comments DTAP/TDAP/TD VACCINES (1 - Tdap) 12/28/1971 Traditional Medicare (ACO) A nnual Wellness Visit 12/28/1971 COLORECTAL SCREENING 1997 Colorectal Cancer Screening 1997 FIT-DNA Q 3 years 1997 FIT/FOBT Q 1 year 1997 Flex Sig/CT Colonography Q 5 years 1997 PNEUMOCOCCAL VACCINE 50+ YEA RS (1 of 1 - PCV) 2002 ZOSTER VACCINE (1 of 2) 2002 INFLUENZA VACCINE (#1) 2023 BREAST CANCER SCREENING 09/11/2024 09/12/19, 09/12/2023, 05/06/2022, Additional history exists RSV VACCINE (60+ or ) (1 - 1-dose 75+ series) 12/28/2027 OSTEOPOROSIS SCREENING 06/07/2028 , 12/29/2020, 10/09/2018 Insurance MEDICARE PART A AND B [facility] Care Teams Garment Manufacturer Relationship Specialty Start Date End Date Harini Damon MD [address] [place] [phone] PCP - General Family Practice 05/10/23
[2024-08-30 08:51] LABS: Basophils Absolute Auto 0.2 K/mm3 (0.0-0.1); Basophils Percent Auto 3.6 % (0.2-1.2); Eosinophils Absolute Auto 0.6 K/mm3 (0-0.3); Eosinophils Percent Auto 13.3 % (0-4.4); Hematocrit 42.4 % (37.0-47.0); Immature Granulocyte Absolute 0.04 K/mm3 (0.00-0.031); Immature Granulocyte Percent A 0.9 % (0-0.5); Lymphocytes Absolute Auto 0.89 K/mm3 (0.9-3.2); Lymphocytes Percent Auto 19.1 % (18.3-44.2); Mean Corpuscular Hemoglobin 31.7 pg (26-34); Mean Corpuscular Volume 96.1 fl (80-100); Mean Platelet Volume 12.2 fl (7.4-10.4); Monocytes Absolute Auto 0.9 K/mm3 (0.1-0.6); Monocytes Percent Auto 19.5 % (2.6-8.5); Neutrophils Percent Auto 43.6 % (45.5-73.1); Platelet Count Result 79 k/mm3 (150-375); Red Blood Count 4.41 M/mm3 (4.2-5.4); Red Cell Distribution Width 14.1 % (11.5-14.5); White Blood Count 4.7 K/mm3 (4.5-10.0)
[2024-08-30 09:19] LABS: Platelet Estimate Decreased (Adequate); Schistocytes None Seen
[2024-08-30 09:22] LABS: Atypical Lymphocytes Present
[2024-08-30 10:26] LABS: Alanine Aminotransferase 17 U/L (6-35); Albumin Level 4.7 g/dL (3.5-5.1); Alkaline Phosphatase 77 U/L (38-126); Anion Gap 7 mmol/L (4-12); Aspartate Amino Transferase 31 U/L (14-36); Bilirubin,Total 0.4 mg/dL (0.2-1.3); Blood Urea Nitrogen 17 mg/dL (7-17); Calcium 9.6 mg/dL (8.4-10.2); Carbon Dioxide 28 mmol/L (22-30); Chloride 107 mmol/L (98-107); Estimated Glomerular Filt Rate > 60; Glucose 108 mg/dL (65-110); Potassium 4.2 mmol/L (3.4-5.0); Sodium 142 mmol/L (137-145); Total Protein 7.7 g/dL (6.3-8.2)
== END 2024-08-30 08:11 | disposition home or self-care (01) ==
LOC: ANHLAB 08:13
PROVIDERS: PCP Family Medicine; Visit Provider Internal Medicine Hematology & Oncology
DX: D69.6 Thrombocytopenia, unspecified (principal)
CPT/HCPCS: 36415; 80053; 85025

== ENCOUNTER 2024-09-18 07:42 | Outpatient (CLI) | payer MEDICARE, BC, SELFPAY ==
--- NOTE | ~2024-09-18 | MM_ITS ---
EXAMINATION: MM screening dhaval BI w abhi HISTORY: Screening mammogram TECHNIQUE: Craniocaudal and mediolateral oblique 3-D tomosynthesis images were obtained and synthetic 2-D images were generated. CAD analysis was submitted and interpreted. COMPARISON: 09/12/2023, 05/06/2022 BREAST PARENCHYMAL COMPOSITION:Not Dense. The breasts are almost entirely fatty FINDINGS: No suspicious mass, calcification, or architectural distortion are identified in either jayme ast to suggest malignancy. There has been no suspicious interval change. IMPRESSION: No mammographic evidence of malignancy. Recommend routine screening mammography in one year. BI-RADS Category 1: Negative Reviewed, dictated and finalized at location .
== END 2024-09-18 07:43 | disposition home or self-care (01) ==
PROVIDERS: PCP Family Medicine; Visit Provider Family Medicine
DX: Z12.31 Encounter for screening mammogram for malignant neoplasm of breast (principal)
CPT/HCPCS: 77063; 77067

== ENCOUNTER 2024-11-09 09:11 | Outpatient (CLI) | payer MEDICARE, BC, SELFPAY ==
--- NOTE | ~2024-11-09 | XR_ITS ---
XR elbow RT min 3V 11/09/2024 09:25 INDICATION: Right elbow pain PROCEDURE: 4 views right elbow COMPARISON: No prior studies for comparison. FINDINGS: Fracture, dislocation or subluxation is not identified. No significant joint effusion. The soft tissues appear within normal limits. No foreign bodies are identified. IMPRESSION: 1: NO ACUTE BONE OR JOINT ABNORMALITY IDENTIFIED. Reviewed, dictated and finalized at location A.
== END 2024-11-09 09:12 | disposition home or self-care (01) ==
LOC: MICIMG 09:13
PROVIDERS: PCP Family Medicine; Visit Provider Family Medicine
DX: M25.521 Pain in right elbow (principal)
CPT/HCPCS: 73080

== ENCOUNTER 2025-02-25 08:14 | Outpatient (CLI) | payer MEDICARE, BC, SELFPAY ==
--- OUTSIDE RECORDS SUMMARY | 2025-02-25 08:28 | XMS_ITS | Clinical Summary ---
Author Organization [facility] Address [address] [place] [address] Care Team Providers Care Cable Stretcher And Tester Name Role Phone Unavailable Primary Care Provider [...] 1 - Tdap) 12/28/1971 Mammogram Screening 1992 Pneumococcal Vaccine: 50+ Ye ars (1 of 1 - PCV) 2002 Zoster Vaccines (1 of 2) 2002 Dexa Scan (General) 2017 COVID-19 Vaccine ( - 2024-2 6 season) 2024 Influenza Adult (#1) 2024 RSV Immunization or 60+ Years (1 - 1-dose 75+ series) 12/28/2027 Hepatitis A Vaccines Aged Out No long er eligible based on patient's age to complete this topic Meningococcal B Vaccine Aged Out No l onger eligible based on patient's age to complete this topic Meningococcal Vaccine Aged Out No christina kosta eligible based on patient's age to complete this topic RSV Immunizations Under 20 Months Aged Out No longer eligible based on patient's age to complete this topic
--- OUTSIDE RECORDS SUMMARY | 2025-02-25 08:28 | XMS_ITS | Clinical Summary ---
Author Organization [facility] Address [address] [place] [address] [place] [address] Care Team Providers Care Nailing Machine Operator Name Role Phone Harini Damon MD Primary Care Provider [phone] Allergies Active Allergy Reactions Criticality Noted Date [...] 400 mg by mouth daily. 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 Gender Identity Not on file Sexual Orientation Not on file Last Filed Vital Signs Vital Sign Reading Time Taken Comments Blood Pressure 125/80 09/14/2024 8:54 AM CDT Pulse 70 09/14/2024 8:52 AM CDT Temperature 36.8 C (98.3 F) 09/14/2024 8:52 AM CDT Respiratory Rate 15 09/14/2024 8:52 AM CDT Oxygen Saturation 90% 09/14/2024 8:52 AM CDT Inhaled Oxygen Concentration - - Weight 79.8 kg (176 lb) 09/14/2024 8:52 AM CDT Height 162.6 cm (5' 4) 05/12/2023 1:42 PM PHOTOCOPYING MACHINE OPERATOR Body Mass Index 30.21 05/12/2023 1:42 PM PHOTOCOPYING MACHINE OPERATOR Plan of Treatment Upcoming Encounters Date Type Department Care Team (Late st Contact Info) Description 03/08/2025 10:30 AM PHOTOCOPYING MACHINE OPERATOR Office Visit [facility] Oncology and Hematology - [place] [address] [facility] [place] [address] Antwon Alford MD [address] [facility] [address] [place] [address] Health Maintenance Due Date Last [...] (1 of 2) 2002 INFLUENZA VACCINE (#1) 2024 BREAST CANCER SCREENING 09/18/2025 09/19/19, 09/18/2024, 09/12/2023, Additional history exists RSV VACCINE (60+ or ) (1 - 1-dose 75+ series) 12/28/2027 OSTEOPOROSIS SCREENING 06/07/2028 , 12/29/2020, 10/09/2018 Insurance MEDICARE PART A AND B [facility] Care Teams Nailing Machine Operator Relationship Specialty Start Date End Date Harini Damon MD [address] [place] [phone] PCP - General Family Practice 05/10/23
[2025-02-25 08:43] LABS: Hematocrit 42.5 % (37.0-47.0); Hemoglobin 13.8 g/dL (12.0-15.0); Immature Granulocyte Percent A 1.9 % (0-0.5); Immature Platelet Fraction Pct 15.1 % (0.9-11.2); Lymphocytes Absolute Auto 0.83 K/mm3 (0.9-3.2); Mean Corpuscular HGB Conc 32.5 g/dl (32-36); Mean Corpuscular Hemoglobin 31.4 pg (26-34); Mean Corpuscular Volume 96.8 fl (80-100); Nucleated Red Blood Cells Absolute Auto 0.000 K/mm3 (0.0-0.012); Nucleated Red Blood Cells Perc 0.0 % (0.0-0.2); Platelet Count Result 140 k/mm3 (150-375); Red Blood Count 4.39 M/mm3 (4.2-5.4); White Blood Count 4.6 K/mm3 (4.5-10.0)
[2025-02-25 11:52] LABS: Alanine Aminotransferase 19 U/L (6-35); Albumin Level 4.7 g/dL (3.5-5.1); Alkaline Phosphatase 80 U/L (38-126); Anion Gap 6 mmol/L (4-12); Aspartate Amino Transferase 32 U/L (14-36); Bilirubin,Total 0.5 mg/dL (0.2-1.3); Blood Urea Nitrogen 20 mg/dL (7-17); Calcium 9.7 mg/dL (8.4-10.2); Carbon Dioxide 30 mmol/L (22-30); Chloride 106 mmol/L (98-107); Estimated Glomerular Filt Rate 55; Glucose 102 mg/dL (65-110); Potassium 4.2 mmol/L (3.4-5.0); Sodium 142 mmol/L (137-145); Total Protein 8.2 g/dL (6.3-8.2)
[2025-02-25 11:55] LABS: Iron 96 ug/dL (37-170)
[2025-02-25 12:04] LABS: Percent Iron Saturation 33 % (20-50)
[2025-02-25 12:36] LABS: Ferritin 359.00 ng/mL (11.1-264)
[2025-02-25 15:07] LABS: Vitamin B12 > 1000.0 pg/mL (239-931)
== END 2025-02-25 08:15 | disposition home or self-care (01) ==
LOC: ANHLAB 08:18
PROVIDERS: PCP Student in an Organized Health Care Education/Training Program; Visit Provider Internal Medicine Hematology & Oncology
DX: D50.9 Iron deficiency anemia, unspecified (principal)
CPT/HCPCS: 36415; 80053; 82607; 82728; 82746; 83540; 83550; 85025; 85055